=== PATIENT | female | born 2005 | race Two or more races ===

== ENCOUNTER → 2023-02-20 13:34 | Outpatient (REF) | payer BC, SELFPAY | LOC: RCS 13:34 | PROVIDERS: ATTENDING PHYSICIAN Internal Medicine Cardiovascular Disease; FAMILY PHYSICIAN Pediatrics | DX: R07.89 Other chest pain (principal) | CPT/HCPCS: 93017; 93350 ==

== ENCOUNTER → 2023-08-31 07:34 | Outpatient (REF) | payer BC, SELFPAY | LOC: MRI 3T 07:34 | PROVIDERS: ATTENDING PHYSICIAN Family Medicine | DX: M54.50 Low back pain, unspecified (principal) | CPT/HCPCS: 72148 ==